=== PATIENT | female | born 1985 | race Caucasian/White ===

== ENCOUNTER 2016-10-08 16:40 | Emergency (ER) | payer OTHER ==
--- NOTE | 2016-10-08 20:25 | ED CLINICAL REPORT ---
Clinical Report - Physicians/Mid Levels [facility] [address] [place] [address] 10/08/2016 16:41 Patient: RADAMES BERTRAND Time Seen: 20:00. Arrived- By private vehicle. Historian- patient. HISTORY OF PRESENT ILLNESS Chief Complaint: LESION. This started several days ago and is still present and now worse. It was gradual in onset and has been constant. It is described as painful. It has been located in the left axilla. No cause has been identified. Similar symptoms previously: Many times. Evaluation/treatment: incision and drainage performed. Diagnosis: abscess. REVIEW OF SYSTEMS No chills, fever, sweats, calf pain or chest pain. No cough, difficulty breathing, pedal edema, palpitations or abdominal pain. No constipation, diarrhea, nausea, vomiting or urinary problems. All systems otherwise negative, except as recorded above. PAST HISTORY Problems: Abscess. Threatened . UTI - Urinary Tract Infection. Vaginitis. OB History. Otitis Externa. Cellulitis. Angioedema. Dysuria. Anemia. Diarrhea. Hypertension. Abdominal Pain. Hypokalemia. Anxiety Reaction. Depression. Cystic hygroma. Additional Surgeries: 14 facial surgeries. Cholecystectomy. Tracheostomy. Medications: Vitamins Oral. Allergies: No Known Drug Allergy. SOCIAL HISTORY No alcohol use or drug use. FAMILY HISTORY Denies family medical history. PHYSICAL EXAM Appearance: Alert. Eyes: Pupils equal, round and reactive to light. ENT: No pharyngeal erythema or swelling. Neck: Neck supple. CVS: Normal heart rate and rhythm. Heart sounds normal. Respiratory: No respiratory distress. Breath sounds normal. Abdomen: Nontender. No organomegaly. Skin: Single medium abscess with fluctuance, pointing and cellulitis to left axilla. Extremities: Normal external inspection. No calf tenderness. PROGRESS AND PROCEDURES Incision & Drainage of Abscess: Time-out completed immediately before the procedure. The abscess is located in the left axilla. The risks of the procedure, benefits and alternatives were explained. Consent was obtained. Local anesthesia provided using 1% lidocaine with epi. Skin cleansed with Betadine. The abscess was incised with a #11 surgical blade. A moderate amount of pus was drained. Cavity was irrigated with saline and packed with gauze. Sample obtained for cultures. A dressing was applied. Course of Care: Patient is stable. Patient/family counseled. Old medical records ordered. Disposition: Discharged. Condition: stable. CLINICAL IMPRESSION Single deep abscess to the left axilla with incision and drainage. Possible hidradenitis suppurativa INSTRUCTIONS No driving or operating machinery while taking medication. Warnings: Further evaluation is necessary. GENERAL WARNINGS: Return or contact your physician immediately if your condition worsens or changes unexpectedly, if not improving as expected, or if other problems arise. Prescription Medications: Bactrim DS 800 mg / 160 mg: take 1 tablet orally every day for 10 days. No refill. Substitution is permissible. Ultram 50 mg tablets: take 1-2 orally every 6 hours as needed for pain. Dispense twenty (20). No refills. Substitution is permissible. Follow-up: Follow up with your doctor Sunday in two days for wound check and packing removal. Call for an appointment. (Electronically signed by Zion Dove MD 10/13/2016 18:29) Addenda for RADAMES BERTRAND VisitID: [id number] Date: 10/08/2016 10/11/2016 14:08 Called pt to see how she is doing, she states the wound is draining well, and she feels a little better. She had not filled the Rx for Bactrim, because "I am " and won't take it "because of the baby." Asked pt to come back to the ED if she gets any worse at all. She stated she will be seeing her PCP on Sunday. Pt once again told to come back to the ED if needed. (Electronically signed by Ernestina Hanley R.N. - 10/11/2016 14:08) 10/11/2016 18:19 Called pt per nurse request, answered all pt's qtns, agreed to call in new abx to [facility], and allergies verified. Keflex 500mg po #28 1 po qid x7d called in (Electronically signed by Annette PageNNeilPNeil - 10/11/2016 18:19)
--- NOTE | 2016-10-08 20:25 | ED ORDER SUMMARY ---
..... Patient: RADAMES BERTRAND OrderSheet [facility] VisitID: [id number] [address] [place] [address] 31y, F Registration Date/Time: 10/08/2016 ORDER SHEET Weight: 90.7 kg (stated) Allergies: No Known Drug Allergy GENERAL ORDERS: Culture, Wound Deep (Incision) (Abcess) Urgent (20:21 10/08/2016 Lena DOHERTY) (20:31 [facility] ER Tech1) MEDICATION ORDERS: IV FLUIDS: ORDER SHEET NOTES: [Electronically signed by Emeka Qiu R.N. (23:48 10/08/2016)] [Electronically signed by Zion Dove MD (18:29 10/13/2016)] [Electronically locked/signed by Emeka Qiu R.N. (23:48 10/08/2016)]
--- NOTE | 2016-10-08 20:25 | ED CLINICAL REPORT ---
Clinical Report - Physicians/Mid Levels [facility] [address] [place] [address] 10/08/2016 16:41 Patient: RADAMES BERTRAND Time Seen: 20:00. Arrived- By private vehicle. Historian- patient. HISTORY OF PRESENT ILLNESS Chief Complaint: LESION. This started several days ago and is still present and now worse. It was gradual in onset and has been constant. It is described as painful. It has been located in the left axilla. No cause has been identified. Similar symptoms previously: Many times. Evaluation/treatment: incision and drainage performed. Diagnosis: abscess. REVIEW OF SYSTEMS No chills, fever, sweats, calf pain or chest pain. No cough, difficulty breathing, pedal edema, palpitations or abdominal pain. No constipation, diarrhea, nausea, vomiting or urinary problems. All systems otherwise negative, except as recorded above. PAST HISTORY Problems: Abscess. Threatened . UTI - Urinary Tract Infection. Vaginitis. OB History. Otitis Externa. Cellulitis. Angioedema. Dysuria. Anemia. Diarrhea. Hypertension. Abdominal Pain. Hypokalemia. Anxiety Reaction. Depression. Cystic hygroma. Additional Surgeries: 14 facial surgeries. Cholecystectomy. Tracheostomy. Medications: Vitamins Oral. Allergies: No Known Drug Allergy. SOCIAL HISTORY No alcohol use or drug use. FAMILY HISTORY Denies family medical history. PHYSICAL EXAM Appearance: Alert. Eyes: Pupils equal, round and reactive to light. ENT: No pharyngeal erythema or swelling. Neck: Neck supple. CVS: Normal heart rate and rhythm. Heart sounds normal. Respiratory: No respiratory distress. Breath sounds normal. Abdomen: Nontender. No organomegaly. Skin: Single medium abscess with fluctuance, pointing and cellulitis to left axilla. Extremities: Normal external inspection. No calf tenderness. PROGRESS AND PROCEDURES Incision & Drainage of Abscess: Time-out completed immediately before the procedure. The abscess is located in the left axilla. The risks of the procedure, benefits and alternatives were explained. Consent was obtained. Local anesthesia provided using 1% lidocaine with epi. Skin cleansed with Betadine. The abscess was incised with a #11 surgical blade. A moderate amount of pus was drained. Cavity was irrigated with saline and packed with gauze. Sample obtained for cultures. A dressing was applied. Course of Care: Patient is stable. Patient/family counseled. Old medical records ordered. Disposition: Discharged. Condition: stable. CLINICAL IMPRESSION Single deep abscess to the left axilla with incision and drainage. Possible hidradenitis suppurativa INSTRUCTIONS No driving or operating machinery while taking medication. Warnings: Further evaluation is necessary. GENERAL WARNINGS: Return or contact your physician immediately if your condition worsens or changes unexpectedly, if not improving as expected, or if other problems arise. Prescription Medications: Bactrim DS 800 mg / 160 mg: take 1 tablet orally every day for 10 days. No refill. Substitution is permissible. Ultram 50 mg tablets: take 1-2 orally every 6 hours as needed for pain. Dispense twenty (20). No refills. Substitution is permissible. Follow-up: Follow up with your doctor Sunday in two days for wound check and packing removal. Call for an appointment. (Electronically signed by Zion Dove MD 10/13/2016 18:29) Addenda for RADAMES BERTRAND VisitID: [id number] Date: 10/08/2016 10/11/2016 14:08 Called pt to see how she is doing, she states the wound is draining well, and she feels a little better. She had not filled the Rx for Bactrim, because "I am " and won't take it "because of the baby." Asked pt to come back to the ED if she gets any worse at all. She stated she will be seeing her PCP on Sunday. Pt once again told to come back to the ED if needed. (Electronically signed by Ernestina Hanley R.N. - 10/11/2016 14:08) 10/11/2016 18:19 Called pt per nurse request, answered all pt's qtns, agreed to call in new abx to [facility], and allergies verified. Keflex 500mg po #28 1 po qid x7d called in (Electronically signed by Annette PageNNeilPNeil - 10/11/2016 18:19)
--- NOTE | 2016-10-08 20:25 | ED ORDER SUMMARY ---
..... Patient: RADAMES BERTRAND OrderSheet [facility] VisitID: [id number] [address] [place] [address] 31y, F Registration Date/Time: 10/08/2016 ORDER SHEET Weight: 90.7 kg (stated) Allergies: No Known Drug Allergy GENERAL ORDERS: Culture, Wound Deep (Incision) (Abcess) Urgent (20:21 10/08/2016 Lena DOHERTY) (20:31 [facility] ER Tech1) MEDICATION ORDERS: IV FLUIDS: ORDER SHEET NOTES: [Electronically signed by Emeka Qiu R.N. (23:48 10/08/2016)] [Electronically signed by Zion Dove MD (18:29 10/13/2016)] [Electronically locked/signed by Emeka Qiu R.N. (23:48 10/08/2016)]
--- NOTE | 2016-10-08 20:25 | ED NURSING NOTES ---
Clinical Report - Nurses [place] [address] 10/08/2016 16:41 Patient: RADAMES BERTRAND TRIAGE Triage time 17:19 Oct 08 2016. Acuity: LEVEL 3. Chief Complaint: SKIN LESION and TENDER AREA. Alert. LC COMA SCORE: [place] Coma Scale: 15- eyes open spontaneously (4); best verbal response- oriented x 4 (5); best motor response- obeys commands (6). --17:25 Emeka Qiu R.N. 17:16 10/08/16. BP: 137/89. HR: 80 (regular). RR: 16. O2 saturation: 99% on room air. Temp: 98.7 F. Pain level now: 7/10. Additional comments: (L) Axilla. --17:25 Emeka Qiu R.N. Weight: 90.7 kg stated. Height/Length: 65 inches Per Patient. BMI: 33.3. --17:21 Emeka Qiu R.N. Medications Vitamins Oral. --17:21 Emeka Qiu R.N. Allergies No Known Drug Allergy. --17:21 Emeka Qiu R.N. Medication/allergy information source: the patient. --17:25 Emeka Qiu R.N. History Arrived by private vehicle. Historian: patient. Accompanied by friend. [facility] ( Abscess in (L) Axilla associated with pain.). Reported as located in the left axilla. Onset. (about 2 days ago). It is described as burning and painful. 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 Symptoms did not improve after treatment. PAST MEDICAL HX: Last normal menstrual period was 2 weeks ago. Denies current . SOCIAL HX: Smoker- current status unknown. No alcohol use or drug use. No infectious disease exposure. ABUSE ASSESSMENT: No report of abuse. FALL RISK ASSESSMENT: Fall risk assessment completed. No fall risk identified. NUTRITIONAL RISK ASSESSMENT: The nutritional risk assessment revealed no deficiencies. FUNCTIONAL ASSESSMENT: Functional assessment: no impairments noted. LEARNING NEEDS ASSESSMENT: The learning needs assessment revealed no barriers. SKIN INTEGRITY ASSESSMENT: Skin integrity risk assessment completed. No skin integrity risk identified. --17:25 Emeka Qiu R.N. PROBLEMS: Abscess. UTI - Urinary Tract Infection. Vaginitis. Otitis Externa. Cellulitis. Angioedema. Anemia. Diarrhea. Hypertension. Abdominal Pain. Immunizations. Hypokalemia. Anxiety Reaction. Depression. Cystic hygroma. --17:24 Emeka Qiu R.N. ADDITIONAL SURGERIES: 14 facial surgeries. Cholecystectomy. Tracheostomy. --17:24 Emeka Qiu R.N. Interventions ID band on patient. To treatment room. --17:25 Emeka Qiu R.N. PHYSICAL ASSESSMENT Ambulatory to room. GENERAL / NEURO / PSYCH: Alert. Oriented X 4. HEENT: Mucous membranes are pink. RESPIRATORY: Respirations not labored. CVS: Pulses within normal limits. GI / : Abdomen nontender. SKIN: Skin is intact, warm and dry. Normal skin turgor. Tenderness present in the left axilla. Swelling present in the left axilla. Erythema present in the left axilla. No skin rash. --17:26 Emeka Qiu R.N. NURSING PROGRESS NOTES Patient gowned. Reassurance given. Patient identifiers checked. Call light placed in reach. Side rails up x 1. Bed placed in lowest position. Brakes of bed on. Patient ready for evaluation- chart flagged and ED physician notified. --17:26 Emeka Qiu R.N. ( I and D cart set up). --20:12 Brennan Lee, ER Chest Painting And Sealing Supervisor Applied clean bulky dressing consisting of 4x4 gauze. Secured with tape and kerlix. --20:30 Brennan Lee, ER Chest Painting And Sealing Supervisor ( WOUND CULTURE SENT). --20:30 Brennan Lee, ER Chest Painting And Sealing Supervisor 20:25 late entry -. I & D: Incision and Drainage of abscess performed by ED physician. Assisted by one tech. The abscess is located on the ((L) Axilla). Preparation: Incision and Drainage tray set up with 2% lidocaine. Procedure: skin cleansed with Betadine; a moderate amount of pus was drained. Cavity was irrigated with saline and packed with gauze. Sample obtained for cultures and gram stain. A dressing was applied. Post-procedure: she was stable, no complications, bleeding controlled and dressing intact. Estimated blood loss: 2 mL. Total time of assist / procedure: 15 minutes. --23:45 Emeka Qiu R.N. DISPOSITION / DISCHARGE Departure time: 20:29. The patient left prior to discharge education being provided. --20:58 Emeka Pickard R.N. 20:29. Condition at departure: improved. No learning barriers present. Discharge instructions provided and reviewed with the patient. Reviewed medication(s) dosing information (prescription mailed to pt). Reviewed wound care instructions (mailed to pt). Reviewed referral to family practice for followup (mailed to pt). Written instructions provided in Filipino. The patient was discharged by the physician. She was discharged home and accompanied by spouse. She left the Emergency Department ambulatory and via private vehicle. Spouse driving. --23:47 Emeka Qiu R.N. Locked/Released at 10/08/2016 23:48 by Emeka Qiu R.N.
--- NOTE | 2016-10-08 20:25 | ED NURSING NOTES ---
Clinical Report - Nurses [facility] [place] [address] 10/08/2016 16:41 Patient: RADAMES BERTRAND TRIAGE Triage time 17:19 Oct 08 2016. Acuity: LEVEL 3. Chief Complaint: SKIN LESION and TENDER AREA. Alert. LC COMA SCORE: [place] Coma Scale: 15- eyes open spontaneously (4); best verbal response- oriented x 4 (5); best motor response- obeys commands (6). --17:25 Emeka Qiu R.N. 17:16 10/08/16. BP: 137/89. HR: 80 (regular). RR: 16. O2 saturation: 99% on room air. Temp: 98.7 F. Pain level now: 7/10. Additional comments: (L) Axilla. --17:25 Emeka Qiu R.N. Weight: 90.7 kg stated. Height/Length: 65 inches Per Patient. BMI: 33.3. --17:21 Emeka Qiu R.N. Medications Vitamins Oral. --17:21 Emeka Qiu R.N. Allergies No Known Drug Allergy. --17:21 Emeka Qiu R.N. Medication/allergy information source: the patient. --17:25 Emeka Qiu R.N. History Arrived by private vehicle. Historian: patient. Accompanied by friend. [facility] ( Abscess in (L) Axilla associated with pain.). Reported as located in the left axilla. Onset. (about 2 days ago). It is described as burning and painful. 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 Symptoms did not improve after treatment. PAST MEDICAL HX: Last normal menstrual period was 2 weeks ago. Denies current . SOCIAL HX: Smoker- current status unknown. No alcohol use or drug use. No infectious disease exposure. ABUSE ASSESSMENT: No report of abuse. FALL RISK ASSESSMENT: Fall risk assessment completed. No fall risk identified. NUTRITIONAL RISK ASSESSMENT: The nutritional risk assessment revealed no deficiencies. FUNCTIONAL ASSESSMENT: Functional assessment: no impairments noted. LEARNING NEEDS ASSESSMENT: The learning needs assessment revealed no barriers. SKIN INTEGRITY ASSESSMENT: Skin integrity risk assessment completed. No skin integrity risk identified. --17:25 Emeka Qiu R.N. PROBLEMS: Abscess. UTI - Urinary Tract Infection. Vaginitis. Otitis Externa. Cellulitis. Angioedema. Anemia. Diarrhea. Hypertension. Abdominal Pain. Immunizations. Hypokalemia. Anxiety Reaction. Depression. Cystic hygroma. --17:24 Emeka Qiu R.N. ADDITIONAL SURGERIES: 14 facial surgeries. Cholecystectomy. Tracheostomy. --17:24 Emeka Qiu R.N. Interventions ID band on patient. To treatment room. --17:25 Emeka Qiu R.N. PHYSICAL ASSESSMENT Ambulatory to room. GENERAL / NEURO / PSYCH: Alert. Oriented X 4. HEENT: Mucous membranes are pink. RESPIRATORY: Respirations not labored. CVS: Pulses within normal limits. GI / : Abdomen nontender. SKIN: Skin is intact, warm and dry. Normal skin turgor. Tenderness present in the left axilla. Swelling present in the left axilla. Erythema present in the left axilla. No skin rash. --17:26 Emeka Qiu R.N. NURSING PROGRESS NOTES Patient gowned. Reassurance given. Patient identifiers checked. Call light placed in reach. Side rails up x 1. Bed placed in lowest position. Brakes of bed on. Patient ready for evaluation- chart flagged and ED physician notified. --17:26 Emeka Qiu R.N. ( I and D cart set up). --20:12 Brennan Lee, ER Supervisor Pile Driving Applied clean bulky dressing consisting of 4x4 gauze. Secured with tape and kerlix. --20:30 Brennan Lee, ER Supervisor Pile Driving ( WOUND CULTURE SENT). --20:30 Brennan Lee, ER Supervisor Pile Driving 20:25 late entry -. I & D: Incision and Drainage of abscess performed by ED physician. Assisted by one tech. The abscess is located on the ((L) Axilla). Preparation: Incision and Drainage tray set up with 2% lidocaine. Procedure: skin cleansed with Betadine; a moderate amount of pus was drained. Cavity was irrigated with saline and packed with gauze. Sample obtained for cultures and gram stain. A dressing was applied. Post-procedure: she was stable, no complications, bleeding controlled and dressing intact. Estimated blood loss: 2 mL. Total time of assist / procedure: 15 minutes. --23:45 Emeka Qiu R.N. DISPOSITION / DISCHARGE Departure time: 20:29. The patient left prior to discharge education being provided. --20:58 Emeka Pickard R.N. 20:29. Condition at departure: improved. No learning barriers present. Discharge instructions provided and reviewed with the patient. Reviewed medication(s) dosing information (prescription mailed to pt). Reviewed wound care instructions (mailed to pt). Reviewed referral to family practice for followup (mailed to pt). Written instructions provided in British. The patient was discharged by the physician. She was discharged home and accompanied by spouse. She left the Emergency Department ambulatory and via private vehicle. Spouse driving. --23:47 Emeka Qiu R.N. Locked/Released at 10/08/2016 23:48 by Emeka Qiu R.N.
--- NOTE | 2016-10-13 18:29 | ED DISCHARGE INSTRUCTIONS ---
Patient: RADAMES BERTRAND General Instructions [facility] VisitID: [id number] [address] [place] [address] 31y, F Registration Date/Time: 10/08/2016 Single deep abscess to the left axilla with incision and drainage. INSTRUCTIONS No driving or operating machinery while taking medication. Warnings: Further evaluation is necessary. GENERAL WARNINGS: Return or contact your physician immediately if your condition worsens or changes unexpectedly, if not improving as expected, or if other problems arise. Prescription Medications: Bactrim DS 800 mg / 160 mg: take 1 tablet orally every day for 10 days. No refill. Substitution is permissible. Ultram 50 mg tablets: take 1-2 orally every 6 hours as needed for pain. Dispense twenty (20). No refills. Substitution is permissible. Follow-up: Follow up with your doctor Sunday in two days for wound check and packing removal. Call for an appointment. ADDITIONAL INFORMATION Abscess [Incision & Drainage] An abscess (sometimes called a boil) occurs when bacteria get trapped under the skin and begin to grow. Pus forms inside the abscess as the body responds to the bacteria. An abscess can occur with an insect bite, ingrown hair, blocked oil gland, pimple, cyst, or puncture wound. Treatment of your abscess has required an incision to drain the pus. If the abscess pocket was large, a gauze packing may have been inserted. This will need to be removed and possibly replaced on your next visit. Antibiotics are not required in the treatment of a simple abscess, unless the infection is spreading into the skin around the wound (known as cellulitis). Healing of the wound will take about one to two weeks depending on the size of the abscess. Healthy tissue will grow from the bottom and sides of the opening until it seals over. Home Care: The wound may drain for the first two days. Cover the wound with a clean dry dressing. If the dressing becomes soaked with blood or pus, change it. If a gauze packing was placed inside the abscess cavity, you may be advised to remove it yourself. You may do this in the shower. Once the packing is removed, you should wash the area in the shower or bath 3 to 4 times a day, until the skin opening has closed. If you were prescribed antibiotics, take them as directed until they are all gone. You may use acetaminophen (Tylenol) or ibuprofen (Motrin, Advil) to control pain, unless another pain medicine was prescribed. [ NOTE: If you have liver disease or ever had a stomach ulcer, talk with your doctor before using these medicines.] Follow Up with your doctor as advised by our staff. If a gauze packing was inserted in your wound, it should be removed in 1-2 days. Check your wound every day for the signs of worsening infection listed below. Get Prompt Medical Attention if any of the following occur: Increasing redness or swelling Red streaks in the skin leading away from the wound Increasing local pain or swelling Continued pus draining from the wound two days after treatment Fever of 100.4F (38C) or higher, or as directed by your healthcare provider Hidradenitis Suppurativa (Abx Only) Hidradenitis suppurativa is chronic inflammation of the sweat glands. It is considered a severe form of acne. Firm, red, painful bumps called nodules form. These are filled with pus. They often enlarge and may break open and drain. Common affected areas are the armpit, groin, and anal area. You have been prescribed antibiotics and anti-inflammatory medications to help treat the flare-up. If nodules continue to enlarge, drainage may be needed. Surgical removal of the glands is the most effective treatment in severe cases. Watch for the signs of early inflammation in the future (small, tenderlumps) and follow the treatment advice below. Home care The following guidelines will help you care for your inflammation at home: If oral antibiotics were prescribed, take all of them as directed. Make a warm compress by running hot water over a facecloth. Apply it to the area until the compress cools off. Repeat over a 15-minute period. Apply the hot compress 3 times a day for the first3 days. As an alternative, municipal maintenance worker the shower and direct the warm spray onto the area. Wash the area with antibacterial soap. Apply an [id number] antibiotic cream 3 to 4 times a day, unless another topical medication was prescribed Use ibuprofen to control pain and swelling, unless another pain medication was prescribed. If you have kidney disease or ever had a stomach ulcer or GI bleeding, talk with your doctor before using this medication. Prevention The following can help prevent hidradenitis suppurativa: Avoid heat and sweating as much as possible. Wear loose clothing. Avoid shaving the affected area. Lose excess weight. If you smoke, consider quitting. Avoiding antiperspirants and deodorants may help. Follow-up care Follow up with your health care provider if symptoms are not improving over the next five days, or as advised by our staff. When to seek medical care Get prompt medical attention if any of the following occur: Increasing redness Increasing pain Fever over 100.4F (38C) for more than 2 days aftertreatment, or as directed Nodules continue to get larger Hidradenitis Suppurativa (Incision and Drainage) Hidradenitis suppurativa is chronic inflammation of the sweat glands. It is considered a severe form of acne. Firm, red, painful bumps called nodules form. These are filled with pus. They often enlarge and may break open and drain. Common affected areas are the armpit, groin, and anal area. You have one or more abscesses (pockets of infection). These require an incision to drain the pus. If the abscess pocket is large, a gauze packing may have been inserted. This will need to be removed and possibly replaced on your next visit. You may also be given antibiotics to help treat infection. Surgical removal of the glands may be the most effective treatment in severe cases. Healing of the wound will take about1 to2 weeks depending on the size of the abscess. Home Care: The wound may drain for the first2 days. Cover the wound with a clean dry bandage. If the dressing becomes soaked with blood or pus, change it. Make a warm compress by running hot water over a face cloth. Apply it to the sore area until the compress cools off. Repeat over a 15-minute period. Apply the hot compress3 times a day for the first3 days. As an alternative, you can municipal maintenance worker the shower and direct the warm spray onto the armpit area. After each treatment, replace any dressing that was applied. If a gauze packing was placed inside the abscess cavity, you may be advised to remove it yourself. You may do this in the shower. Once the packing is removed, you should wash the area carefully in the shower once a day, until the skin opening has closed. Use antibacterial soap, available without a prescription at drugstores and larger grocery stores. If you were prescribed antibiotics, take them as directed until they are all gone. You may use ibuprofen (Motrin, Advil) to control pain and swelling, unless another pain medication was prescribed. [NOTE: If you have chronic kidney disease or ever had a stomach ulcer or GI bleeding, talk with your doctor before using this medication.] Prevention: Avoid heat and sweating as much as possible. Wear loose clothing. Avoid shaving the affected area. Lose excess weight. If you smoke, consider quitting. Avoiding antiperspirants and deodorants may help. Follow Up with your doctor as advised by our staff. If a gauze packing was inserted in your wound, it should be removed in 1 to 2 days. Check your wound every day for the signs listed below. Get Prompt Medical Attention If Any Of The Following Occur: Increasing redness or swelling Increasing pain Red tracks in the skin around the wound Continued pus draining from the wound for more than2 days after treatment Fever of 100.4F (38C) or higher, or as directed by your healthcare provider Sulfamethoxazole, Trimethoprim Oral tablet What is this medicine? SULFAMETHOXAZOLE; TRIMETHOPRIM or SMX-TMP (suhl fuh meth OK kelly zohl; trye METH oh prim) is a combination of a sulfonamide antibiotic and a second antibiotic, trimethoprim. It is used to treat or prevent certain kinds of bacterial infections. It will not work for colds, flu, or other viral infections. How should I use this medicine? Take this medicine by mouth with a full glass of water. Follow the directions on the prescription label. Take your medicine at regular intervals. Do not take it more often than directed. Do not skip doses or stop your medicine early. Talk to your twisting operator regarding the use of this medicine in children. Special care may be needed. This medicine has been used in children as young as 2 months of age. What side effects may I notice from receiving this medicine? Side effects that you should report to your doctor or health animal care service worker as soon as possible: allergic reactions like skin rash or hives, swelling of the face, lips, or tongue breathing problems fever or chills, sore throat irregular heartbeat, chest pain joint or muscle pain pain or difficulty passing urine red pinpoint spots on skin redness, blistering, peeling or loosening of the skin, including inside the mouth unusual bleeding or bruising unusually weak or tired yellowing of the eyes or skin Side effects that usually do not require medical attention (report to your doctor or health animal care service worker if they continue or are bothersome): diarrhea dizziness headache loss of appetite nausea, vomiting nervousness What may interact with this medicine? Do not take this medicine with any of the following medications: aminobenzoate potassium dofetilide metronidazole This medicine may also interact with the following medications: TONG inhibitors like benazepril, enalapril, lisinopril, and ramipril cyclosporine digoxin diuretics indomethacin medicines for diabetes methenamine methotrexate phenytoin potassium supplements pyrimethamine sulfinpyrazone tricyclic antidepressants warfarin What if I miss a dose? If you miss a dose, take it as soon as you can. If it is almost time for your next dose, take only that dose. Do not take double or extra doses. Where should I keep my medicine? Keep out of the reach of children. Store at room temperature between 20 to 25 degrees C (68 to 77 degrees F). Protect from light. Throw away any unused medicine after the expiration date. What should I tell my health care provider before I take this medicine? They need to know if you have any of these conditions: anemia asthma being treated with anticonvulsants if you frequently drink alcohol containing drinks kidney disease liver disease low level of folic acid or [id number] dehydrogenase poor nutrition or malabsorption porphyria severe allergies thyroid disorder an unusual or allergic reaction to sulfamethoxazole, trimethoprim, sulfa drugs, other medicines, foods, dyes, or preservatives or trying to get breast-feeding What should I watch for while using this medicine? Tell your doctor or health animal care service worker if your symptoms do not improve. Drink several glasses of water a day to reduce the risk of kidney problems. Do not treat diarrhea with over the counter products. Contact your doctor if you have diarrhea that lasts more than 2 days or if it is severe and watery. This medicine can make you more sensitive to the sun. Keep out of the sun. If you cannot avoid being in the sun, wear protective clothing and use a sunscreen. Do not use sun lamps or tanning beds/booths. Tramadol Hydrochloride Oral tablet What is this medicine? TRAMADOL (TRA ma dole) is a pain reliever. It is used to treat moderate to severe pain in adults. How should I use this medicine? Take this medicine by mouth with a full glass of water. Follow the directions on the prescription label. If the medicine upsets your stomach, take it with food or milk. Do not take more medicine than you are told to take. Talk to your twisting operator regarding the use of this medicine in children. Special care may be needed. What side effects may I notice from receiving this medicine? Side effects that you should report to your doctor or health animal care service worker as soon as possible: allergic reactions like skin rash, itching or hives, swelling of the face, lips, or tongue breathing difficulties, wheezing confusion itching light headedness or fainting spells redness, blistering, peeling or loosening of the skin, including inside the mouth seizures Side effects that usually do not require medical attention (report to your doctor or health animal care service worker if they continue or are bothersome): constipation dizziness drowsiness headache nausea, vomiting What may interact with this medicine? Do not take this medicine with any of the following medications: MAOIs like Carbex, Eldepryl, Marplan, Nardil, and Parnate This medicine may also interact with the following medications: alcohol or medicines that contain alcohol antihistamines benzodiazepines bupropion carbamazepine or oxcarbazepine clozapine cyclobenzaprine digoxin furazolidone linezolid medicines for depression, anxiety, or psychotic disturbances medicines for migraine headache like almotriptan, eletriptan, frovatriptan, naratriptan, rizatriptan, sumatriptan, zolmitriptan medicines for pain like pentazocine, buprenorphine, butorphanol, meperidine, nalbuphine, and propoxyphene medicines for sleep muscle relaxants naltrexone phenobarbital phenothiazines like perphenazine, thioridazine, chlorpromazine, mesoridazine, fluphenazine, prochlorperazine, promazine, and trifluoperazine procarbazine warfarin What if I miss a dose? If you miss a dose, take it as soon as you can. If it is almost time for your next dose, take only that dose. Do not take double or extra doses. Where should I keep my medicine? Keep out of the reach of children. Store at room temperature between 15 and 30 degrees C (59 and 86 degrees F). Keep container tightly closed. Throw away any unused medicine after the expiration date. What should I tell my health care provider before I take this medicine? They need to know if you have any of these conditions: brain tumor depression drug abuse or addiction head injury if you frequently drink alcohol containing drinks kidney disease or trouble passing urine liver disease lung disease, asthma, or breathing problems seizures or epilepsy suicidal thoughts, plans, or attempt; a previous suicide attempt by you or a family member an unusual or allergic reaction to tramadol, codeine, other medicines, foods, dyes, or preservatives or trying to get breast-feeding What should I watch for while using this medicine? Tell your doctor or health animal care service worker if your pain does not go away, if it gets worse, or if you have new or a different type of pain. You may develop tolerance to the medicine. Tolerance means that you will need a higher dose of the medicine for pain relief. Tolerance is normal and is expected if you take this medicine for a long time. Do not suddenly stop taking your medicine because you may develop a severe reaction. Your body becomes used to the medicine. This does NOT mean you are addicted. Addiction is a behavior related to getting and using a drug for a non-medical reason. If you have pain, you have a medical reason to take pain medicine. Your doctor will tell you how much medicine to take. If your doctor wants you to stop the medicine, the dose will be slowly lowered over time to avoid any side effects. You may get drowsy or dizzy. Do not drive, use machinery, or do anything that needs mental alertness until you know how this medicine affects you. Do not stand or sit up quickly, especially if you are an older patient. This reduces the risk of dizzy or fainting spells. Alcohol can increase or decrease the effects of this medicine. Avoid alcoholic drinks. You may have constipation. Try to have a bowel movement at least every 2 to 3 days. If you do not have a bowel movement for 3 days, call your doctor or health animal care service worker. Your mouth may get dry. Chewing sugarless gum or sucking hard candy, and drinking plenty of water may help. Contact your doctor if the problem does not go away or is severe. You have been given the following additional information: Abscess, Incision And Drainage Hidradenitis Suppurativa, Abx Hidradenitis Suppurative, Incision And Drainage Sulfamethoxazole, Trimethoprim Oral tablet Tramadol Hydrochloride Oral tablet No driving or operating machinery while taking medication. (Electronically signed by Zion Dove MD 10/13/2016 18:29)
--- NOTE | 2016-10-13 18:29 | ED MED RECONCILIATION SUMMARY ---
Patient: RADAMES BERTRAND Medication Reconciliation Report [facility] VisitID: [id number] [address] [place] [address] 31y, F Registration Date/Time: 10/08/2016 Weight: 90.7 kg Height/Length: 65 in. BMI: 33.3 ALLERGIES: No Known Drug Allergy The patient's Home Medications are listed below: THE FOLLOWING MEDICATIONS NEED TO BE RECONCILED: Vitamins Oral The source(s) of the original Home Medication information: patient The following Medications were given to the patient in the Emergency Department: None. The following Medications were prescribed to the patient: Bactrim DS 800 mg / 160 mg: take 1 tablet orally every day for 10 days. No refill. Substitution is permissible. -- Zion Dove MD Ultram 50 mg tablets: take 1-2 orally every 6 hours as needed for pain. Dispense twenty (20). No refills. Substitution is permissible. -- Zion Dove MD
--- NOTE | 2016-10-13 18:29 | ED MAR SUMMARY ---
..... Medication Administration Record [facility] [address] [place], [place] [id number] Patient: RADAMES BERTRAND Visit ID: [id number] 31y, F Weight: 90.7 kg Height/Length: 65 in BMI: 33.3 ALLERGIES: No Known Drug Allergy
--- NOTE | 2016-10-13 18:29 | ED MAR SUMMARY ---
..... Medication Administration Record [facility] [address] [place], [place] [id number] Patient: RADAMES BERTRAND Visit ID: [id number] 31y, F Weight: 90.7 kg Height/Length: 65 in BMI: 33.3 ALLERGIES: No Known Drug Allergy
--- NOTE | 2016-10-13 18:29 | ED MED RECONCILIATION SUMMARY ---
Patient: RADAMES BERTRAND Medication Reconciliation Report [facility] VisitID: [id number] [address] [place] [address] 31y, F Registration Date/Time: 10/08/2016 Weight: 90.7 kg Height/Length: 65 in. BMI: 33.3 ALLERGIES: No Known Drug Allergy The patient's Home Medications are listed below: THE FOLLOWING MEDICATIONS NEED TO BE RECONCILED: Vitamins Oral The source(s) of the original Home Medication information: patient The following Medications were given to the patient in the Emergency Department: None. The following Medications were prescribed to the patient: Bactrim DS 800 mg / 160 mg: take 1 tablet orally every day for 10 days. No refill. Substitution is permissible. -- Zion Dove MD Ultram 50 mg tablets: take 1-2 orally every 6 hours as needed for pain. Dispense twenty (20). No refills. Substitution is permissible. -- Zion Dove MD
== END 2016-10-08 20:29 | disposition home or self-care (01) ==
LOC: ED SRH 16:40
DX: L02.412 Cutaneous abscess of left axilla (principal); I10 Essential (primary) hypertension
CPT/HCPCS: 90070; 90131; 90309; 90470